=== PATIENT | male | born 1960 | race Caucasian/White ===

== ENCOUNTER 2017-07-23 08:43 | Emergency (ER) | payer MEDICARE, MEDICAID ==
[2017-07-23] MEDS ORDERED: ASPIRIN 81 MG TABLET, CHEWABLE PO ONE (09:06)
[2017-07-23 09:34] LABS: ABSOLUTE BASOPHILS # (AUTO) 0.1 10^3/uL (0.0-0.2); ABSOLUTE EOSINOPHILS # (AUTO) 0.1 10^3/uL (0.0-0.6); ABSOLUTE LYMPHOCYTES (AUTO) 0.7 10^3/uL (0.5-4.7); ABSOLUTE MONOCYTES (AUTO) 0.4 10^3/uL (0.1-1.4); ABSOLUTE NEUT (AUTO) 8.8 10^3/uL (1.7-8.2); BASOPHILS % (AUTO) 1.1 % (0-2); EOSINOPHILS % (AUTO) 0.9 % (0-6); HEMATOCRIT 39.8 % (37.9-51.0); HEMOGLOBIN 13.8 g/dL (13.5-17.0); LYMPHOCYTES % (AUTO) 6.8 % (13-45); MEAN CORPUSCULAR HEMOGLOBIN 30.6 pg (27.0-33.4); MEAN CORPUSCULAR HGB CONC 34.8 g/dL (32.0-36.0); MEAN CORPUSCULAR VOLUME 88 fl (80-97); MONOCYTES % (AUTO) 4.3 % (3-13); PLATELET COUNT 283 10^3/uL (150-450); RED BLOOD COUNT 4.52 10^6/uL (4.35-5.55); RED CELL DISTRIBUTION WIDTH 13.1 % (11.5-14.0); SEGMENTED NEUTROPHILS % (AUTO) 86.9 % (42-78); TOTAL CELLS COUNTED % (AUTO) 100 %; WHITE BLOOD COUNT 10.1 10^3/uL (4.0-10.5)
[2017-07-23] MEDS ORDERED: METOPROLOL TARTRATE 100 MG TABLET PO ONE (09:35)
--- NOTE | 2017-07-23 09:35 | ER Document Report ---
ED General - General Chief Complaint: Chest Pain Stated Complaint: CHEST PAIN Time Seen by Provider: 07/23/17 09:06 Mode of Arrival: Ambulatory Information source: Patient Notes: 56-year-old male history of 8 MIs 14 stents presents with complaints of chest pressure sensation. Patient notes his last CO and cardiac workup was in 2011 at [place]. Patient denies any nausea or vomiting admits to shortness of breath, he states he daily has chest pain but this time it did not improve completely with nitroglycerin which is different than his previous chest pains. Patient does note that for the past 48 hours he has been off his metoprolol TRAVEL OUTSIDE OF THE [place] IN LAST 30 DAYS: No - HPI Onset: Other - 48 hours Onset/Duration: Persistent Quality of pain: Pressure Severity: Mild Pain Level: 1 Associated symptoms: Chest pain Exacerbated by: Other Relieved by: Denies Similar symptoms previously: No Recently seen / treated by doctor: No - Related Data Allergies/Adverse Reactions: No Known Allergies Allergy (Verified 07/23/17 08:54) Past Medical History - Social History Smoking Status: Never Smoker Cigarette use (# per day): No Chew tobacco use (# tins/day): No Smoking Education Provided: No Family History: Reviewed & Not Pertinent - Past Medical History Cardiac Medical History: Reports: Hx Congestive Heart Failure, Hx Heart Attack - x6, Hx Hypercholesterolemia, Hx Hypertension Endocrine Medical History: Reports: Hx Diabetes Mellitus Type 2 Past Surgical History: Reports: Hx Cardiac Catheterization - stints x 11 Review of Systems - Review of Systems Notes: REVIEW OF SYSTEMS: CONSTITUTIONAL : Denies fever, chills, or sweats. Denies recent illness. EENT: Denies eye, ear, throat, or mouth pain or symptoms. Denies nasal or sinus congestion or discharge. Denies throat, tongue, or mouth swelling or difficulty swallowing. CARDIOVASCULAR: Admits to chest pain RESPIRATORY: Admits shortness of breath GASTROINTESTINAL: Denies abdominal pain or distention. Denies nausea, vomiting , or diarrhea. Denies blood in vomitus, stools, or per rectum. Denies black, tarry stools. Denies constipation. GENITOURINARY: Denies difficulty urinating, painful urination, burning, frequency, blood in urine, or discharge. MUSCULOSKELETAL: Denies back or neck pain or stiffness. Denies joint pain or swelling. SKIN: Denies rash, lesions or sores. HEMATOLOGIC : Denies easy bruising or bleeding. LYMPHATIC: Denies swollen, enlarged glands. NEUROLOGICAL: Denies confusion or altered mental status. Denies passing out or loss of consciousness. Denies dizziness or lightheadedness. Denies headache. Denies weakness or paralysis or loss of use of either side. Denies problems with gait or speech. Denies sensory loss, numbness, or tingling. Denies seizures. PSYCHIATRIC: Denies anxiety or stress. Denies depression, suicidal ideation, or homicidal ideation. ALL OTHER SYSTEMS REVIEWED AND NEGATIVE. Dictation was performed using [employer] voice recognition software PHYSICAL EXAMINATION: GENERAL: Well-appearing, well-nourished and in no acute distress. HEAD: Atraumatic, normocephalic. EYES: Pupils equal round and reactive to light, extraocular movements intact, sclera anicteric, conjunctiva are normal. ENT: Nares patent, oropharynx clear without exudates. Moist mucous membranes. NECK: Normal range of motion, supple without lymphadenopathy LUNGS: Breath sounds clear to auscultation bilaterally and equal. No wheezes rales or rhonchi. HEART: Regular rate and rhythm without murmurs ABDOMEN: Soft, nontender, nondistended abdomen. No guarding, no rebound. No masses appreciated. Musculoskeletal: Normal range of motion, no pitting or edema. No cyanosis. NEUROLOGICAL: Cranial nerves grossly intact. Normal speech, normal gait. Normal sensory, motor exams PSYCH: Normal mood, normal affect. SKIN: Warm, Dry, normal turgor, no rashes or lesions noted. Physical Exam - Vital signs Vitals: Temp Pulse Resp BP Pulse Ox 98.1 F 113 H 16 140/94 H 96 07/23/17 08:56 07/23/17 08:56 07/23/17 08:56 07/23/17 08:56 07/23/17 08:56 Course - Re-evaluation Re-evalutation: 07/23/17 09:36 Given extensive cardiac history cardiac workup is pending, patient believes his pain is secondary to his hypertension and lack of metoprolol, he will be given a dose of metoprolol here 07/23/17 10:13 elizabeth evangelista, trop is 0.065 07/23/17 10:[address] rosario , who accepts but patient will be here due ot room availability. 07/23/17 14:31 second set is 2.7 troponin. ekg ordered, new ksenia notified. - Vital Signs Vital signs: Temp Pulse Resp BP Pulse Ox 98.1 F 113 H 15 114/87 H 95 07/23/17 08:56 07/23/17 08:56 07/23/17 14:46 07/23/17 14:46 07/23/17 14:46 - Laboratory Result Diagrams: 07/23/17 09:20 07/23/17 09:20 Laboratory results interpreted by me: 07/23/17 07/23/17 09:20 09:20 Seg Neutrophils % 86.9 H Lymphocytes % 6.8 L Absolute Neutrophils 8.8 H BUN 21 H Glucose 199 H AST 16 L ALT 20 L - Diagnostic Test Radiology reviewed: Image reviewed, Reports reviewed - EKG Interpretation by Me EKG shows normal: Sinus rhythm, [place], Intervals - No ST elevations noted, QRS Complexes Critical Care Note - Critical Care Note Total time excluding time spent on procedures (mins): 55 Comments: 55 minutes of critical care time spent in direct contact evaluating and reevaluating the patient, treating symptoms, reviewing labs and studies and speaking with family and consultants excluding any procedures Discharge - Discharge Clinical Impression: Unstable angina, NSTEMI (non-ST elevated myocardial infarction) Condition: Fair Disposition: [facility] Referrals: SONIA PORTILLO MD [EMERITUS] - Follow up as needed
[2017-07-23 09:48] LABS: ALANINE AMINOTRANSFERASE 20 U/L (21-72); ALBUMIN 4.2 g/dL (3.5-5.0); ALKALINE PHOSPHATASE 83 U/L (38-126); ANION GAP 13 (5-19); ASPARTATE AMINO TRANSFERASE 16 U/L (17-59); BILIRUBIN,DIRECT 0.3 mg/dL (0.0-0.4); BILIRUBIN,TOTAL 0.7 mg/dL (0.2-1.3); BLOOD UREA NITROGEN 21 mg/dL (7-20); CALCIUM 9.4 mg/dL (8.4-10.2); CARBON DIOXIDE 22 mmol/L (22-30); CHLORIDE 106 mmol/L (98-107); CREATINE KINASE 75 U/L (55-170); GLUCOSE 199 mg/dL (75-110); POTASSIUM 4.6 mmol/L (3.6-5.0); SODIUM 140.9 mmol/L (137-145); TOTAL PROTEIN 6.8 g/dL (6.3-8.2)
[2017-07-23 09:59] LABS: CREATINE KINASE MB 3.15 ng/mL (<4.55)
[2017-07-23 10:03] LABS: TROPONIN I 0.065 ng/mL
[2017-07-23] MEDS ORDERED: HEPARIN SOD (PORCINE) 1,000 UNIT/ML 10 ML VIAL IV ONE (10:10)
[2017-07-23] MEDS ORDERED: HEPARIN SODIUM,PORCINE/D5W 25,000 UNIT/250 ML RTUINJ IV PRN (10:10)
[2017-07-23] MEDS ORDERED: NITROGLYCERIN 5 MG (0.2 MG/HR) PATCH.TD24 TD ONE (10:12)
--- NOTE | 2017-07-23 10:13 | RADIOLOGY REPORT (SQ) ---
EXAM DESCRIPTION: CHEST SINGLE VIEW COMPLETED DATE/TIME: 07/23/2017 10:01 am REASON FOR STUDY: chest pain COMPARISON: 07/23/2011 EXAM PARAMETERS: NUMBER OF VIEWS: One view. TECHNIQUE: Single frontal radiographic view of the chest acquired. RADIATION DOSE: NA LIMITATIONS: None. FINDINGS: LUNGS AND PLEURA: No opacities, masses or pneumothorax. No pleural effusion. MEDIASTINUM AND HILAR STRUCTURES: No masses. Contour normal. HEART AND VASCULAR STRUCTURES: Heart normal in size. Normal vasculature. BONES: No acute findings. HARDWARE: None in the chest. OTHER: No other significant finding. IMPRESSION: NO ACUTE RADIOGRAPHIC FINDING IN THE CHEST. TECHNICAL DOCUMENTATION: JOB ID: [id number] [employer]- All Rights Reserved Reading location - IP/workstation name: [email or web address]
[2017-07-23 10:43] LABS: INTERNATIONAL RATION (INR) 0.95; PROTHROMBIN TIME 13.2 SEC (11.4-15.4)
[2017-07-23 10:44] LABS: PARTIAL THROMBOPLASTIN TIME 29.9 SEC (23.5-35.8)
[2017-07-23] MEDS ORDERED: HEPARIN SODIUM,PORCINE/D5W 25,000 UNIT/250 ML RTUINJ IV ONE (10:45)
[2017-07-23] MEDS ORDERED: HEPARIN SOD (PORCINE) 1,000 UNIT/ML 10 ML VIAL IV PRN (13:11)
[2017-07-23 16:18] VITALS: BP 113/77
--- NOTE | 2017-07-23 22:30 | EKG REPORT ---
SEVERITY:- ABNORMAL ECG - SINUS RHYTHM NONSPECIFIC T ABNORMALITIES, LATERAL LEADS : Confirmed by: Brittani Nails MD 23-Jul-2017 22:29:45
--- NOTE | 2017-07-23 22:31 | EKG REPORT ---
SEVERITY:- ABNORMAL ECG - SINUS TACHYCARDIA VENTRICULAR PREMATURE COMPLEX INCOMPLETE LEFT BUNDLE BRANCH BLOCK : Confirmed by: Brittani Nails MD 23-Jul-2017 22:30:01
== END 2017-07-23 16:25 | disposition short-term general hospital (02) ==
LOC: ER 08:43
DX: I20.0 Unstable angina (principal); I21.4 Non-ST elevation (NSTEMI) myocardial infarction; R07.9 Chest pain, unspecified; I50.9 Heart failure, unspecified; E78.00 Pure hypercholesterolemia, unspecified; I11.0 Hypertensive heart disease with heart failure; I25.2 Old myocardial infarction
CPT/HCPCS: 93005; 99285; 96365; 96366; 36415; 82553; 82962; 82550; 85025; 85610; 85730; 80053; 84484; 71045; 93010; J1644 ×2; A9270; J3490

== ENCOUNTER 2017-10-19 20:59 | Emergency (ER) | payer MEDICARE, MEDICAID ==
--- NOTE | 2017-10-19 21:33 | ER Document Report ---
ED General - General Chief Complaint: Fever Stated Complaint: FEVER Time Seen by Provider: 10/19/17 21:15 Information source: Patient Notes: Patient is a 57-year-old male complaining of chills and sweats since 230 this morning. Patient stated he took his temperature orally prior to calling EMS and got a recording of 103.3 Fahrenheit, patient stated he took no medications just came to the emergency room via EMS. Patient denies nausea, vomiting, diarrhea, URI symptoms, headache, neck pain, weakness, dizziness, chest pain, shortness of breath. Patient stated yesterday mid afternoon he was feeling dizzy check his blood sugar and it was 55. Stated he ate something and felt "fine afterwards ". Patient has extensive cardiac history with "14 stents", CHF , hypertension, hyperlipidemia, and diabetes. On exam patient is currently denying all complaints to include chills or sweats at the moment. TRAVEL OUTSIDE OF THE [place] IN LAST 30 DAYS: No - Related Data Allergies/Adverse Reactions: No Known Allergies Allergy (Verified 07/23/17 08:54) Past Medical History - General Information source: Patient - Social History Smoking Status: Former Smoker Family History: Reviewed & Not Pertinent Patient has suicidal ideation: No Patient has homicidal ideation: No - Past Medical History Cardiac Medical History: Reports: Hx Congestive Heart Failure, Hx Heart Attack - x6, Hx Hypercholesterolemia, Hx Hypertension Endocrine Medical History: Reports: Hx Diabetes Mellitus Type 2 Renal/ Medical History: Denies: Hx Peritoneal Dialysis Past Surgical History: Reports: Hx Cardiac Catheterization - stints x 11 Review of Systems - Review of Systems Constitutional: See HPI EENT: See HPI Cardiovascular: See HPI Respiratory: See HPI Gastrointestinal: See HPI. denies: Abdominal pain Genitourinary: No symptoms reported Male Genitourinary: No symptoms reported Musculoskeletal: No symptoms reported Skin: No symptoms reported Hematologic/Lymphatic: No symptoms reported Neurological/Psychological: No symptoms reported Physical Exam - Vital signs Vitals: Resp Pulse Ox 21 H 97 10/19/17 21:05 10/19/17 21:05 - Notes Notes: GENERAL: Alert, interacts well. No acute distress. HEAD: Normocephalic, atraumatic. EYES: Pupils equal, round, and reactive to light. Extraocular movements intact. ENT: Oral mucosa moist, tongue midline. [Nares patent, no nasal septal hematoma , TM's WNL, pharynx within normal limits] NECK: Full range of motion. Supple. Trachea midline. LUNGS: Clear to auscultation bilaterally, no wheezes, rales, or rhonchi. No respiratory distress. HEART: Regular rate and rhythm. No murmur ABDOMEN: Soft, non-tender. Non-distended. Bowel sounds present in all 4 quadrants. EXTREMITIES: Moves all 4 extremities spontaneously. No edema, normal radial and dorsalis pedis pulses bilaterally. No cyanosis. BACK: no cervical, thoracic, lumbar midline tenderness. No saddle anesthesia, normal distal neurovascular exam. NEUROLOGICAL: Alert and oriented x3. Normal speech. [cranial nerves II through XII grossly intact]. PSYCH: Normal affect, normal mood. SKIN: Warm, dry, normal turgor. No rashes or lesions noted. Course - Re-evaluation Re-evalutation: Patient continues to be complaint free while in the emergency department, also without fever. At one point patient's blood pressure dropped to 94/64, although patient continued to deny lightheadedness dizziness or weakness. Blood pressure responded to fluid bolus. Lactate and blood cultures were obtained at that time. Troponins negative. Other lab results benign. Return precautions given. Upon discharge nurse stated the patient had a fever. Upon reexam patient continued to deny nausea, vomiting, diarrhea, URI symptoms, headache, neck stiffness, chest pain, shortness of breath, rash, tick exposure. Talked to patient about antipyretics and need to follow-up with primary care. Broad- spectrum antibiotics such as doxycycline were offered, patient declined. Urine cultures and blood cultures pending. - Vital Signs Vital signs: Temp Pulse Resp BP Pulse Ox 101 F H 94 36 H 123/66 94 10/20/17 03:01 10/19/17 21:06 10/20/17 03:01 10/20/17 03:01 10/20/17 03:01 - Laboratory Result Diagrams: 10/19/17 21:30 10/19/17 21:30 Laboratory results interpreted by me: 10/19/17 10/19/17 10/19/17 21:30 21:30 21:51 RBC 4.19 L Hgb 12.7 L Hct 36.5 L Sodium 135.1 L BUN 30 H Creatinine 1.35 H Est GFR (Non-Af Amer) 55 L Glucose 216 H Urine Glucose (UA) 50 H Urine Urobilinogen 2.0 H Discharge - Discharge Clinical Impression: Chills, Dehydration Condition: Stable Disposition: HOME, SELF-CARE Instructions: Viral Syndrome (OM) Additional Instructions: As we talked about you are to take 2 500 mg of Tylenol every 4 hours for fever. Continue to stay well-hydrated. Follow-up with primary care in the next 24- 48 hours. Viral Syndrome The physician has diagnosed a viral infection. Viruses not only cause "colds," but can cause many different symptoms including generalized aching, fever, headache, cough, diarrhea, nausea, vomiting, and fatigue. The treatment, for the most part, is simply relief of symptoms. This means that antibiotics are usually not given. Rest, fluids, pain medications and, occasionally, medication for the specific symptoms that are most bothersome will be prescribed. Use good handwashing to avoid passing the virus to others. Shared toys should be cleaned with disinfectant. Clean the toilets, sinks, and counter surfaces in bathrooms. Launder clothing in hot water. Contact the physician if you develop any new or unusual symptoms such as severe headache, stiff neck, high fever, chest pain, productive cough, or shortness of breath. You should be rechecked if you don't see marked improvement within seven to 10 days. Referrals: KIM LOPEZ DO [Primary Care Provider] - Follow up as needed
[2017-10-19 22:07] LABS: ALANINE AMINOTRANSFERASE 22 U/L (21-72); ALBUMIN 3.5 g/dL (3.5-5.0); ALKALINE PHOSPHATASE 83 U/L (38-126); ANION GAP 12 (5-19); ASPARTATE AMINO TRANSFERASE 19 U/L (17-59); BILIRUBIN,DIRECT 0.3 mg/dL (0.0-0.4); BILIRUBIN,TOTAL 0.6 mg/dL (0.2-1.3); BLOOD UREA NITROGEN 30 mg/dL (7-20); CALCIUM 8.4 mg/dL (8.4-10.2); CARBON DIOXIDE 23 mmol/L (22-30); CHLORIDE 100 mmol/L (98-107); GLUCOSE 216 mg/dL (75-110); POTASSIUM 4.7 mmol/L (3.6-5.0); SODIUM 135.1 mmol/L (137-145); TOTAL PROTEIN 6.4 g/dL (6.3-8.2)
[2017-10-19 22:20] LABS: APPEARANCE,URINE SLIGHTLY-CLOUDY; BILIRUBIN,URINE NEGATIVE (NEGATIVE); COLOR,URINE YELLOW; GLUCOSE, URINE 50 mg/dL (NEGATIVE); KETONES,URINE NEGATIVE (NEGATIVE); LEUKOCYTE ESTERASE,URINE NEGATIVE (NEGATIVE); NITRITE,URINE NEGATIVE (NEGATIVE); PROTEIN,URINE NEGATIVE (NEGATIVE); URINE SPECIFIC GRAVITY 1.019
[2017-10-19 22:24] LABS: ABSOLUTE BASOPHILS # (AUTO) 0.1 10^3/uL (0.0-0.2); ABSOLUTE EOSINOPHILS # (AUTO) 0.1 10^3/uL (0.0-0.6); ABSOLUTE LYMPHOCYTES (AUTO) 1.3 10^3/uL (0.5-4.7); ABSOLUTE MONOCYTES (AUTO) 0.7 10^3/uL (0.1-1.4); ABSOLUTE NEUT (AUTO) 5.9 10^3/uL (1.7-8.2); BASOPHILS % (AUTO) 0.9 % (0-2); EOSINOPHILS % (AUTO) 0.9 % (0-6); HEMATOCRIT 36.5 % (37.9-51.0); HEMOGLOBIN 12.7 g/dL (13.5-17.0); LYMPHOCYTES % (AUTO) 15.8 % (13-45); MEAN CORPUSCULAR HEMOGLOBIN 30.2 pg (27.0-33.4); MEAN CORPUSCULAR HGB CONC 34.7 g/dL (32.0-36.0); MEAN CORPUSCULAR VOLUME 87 fl (80-97); MONOCYTES % (AUTO) 8.9 % (3-13); PLATELET COUNT 219 10^3/uL (150-450); RED BLOOD COUNT 4.19 10^6/uL (4.35-5.55); RED CELL DISTRIBUTION WIDTH 13.9 % (11.5-14.0); SEGMENTED NEUTROPHILS % (AUTO) 73.5 % (42-78); TOTAL CELLS COUNTED % (AUTO) 100 %; WHITE BLOOD COUNT 8.1 10^3/uL (4.0-10.5)
--- NOTE | 2017-10-19 22:48 | RADIOLOGY REPORT (SQ) ---
XR CHEST 2 VIEWS HISTORY: Fever. COMPARISON: 07/23/2017 FINDINGS/IMPRESSION: Normal cardiomediastinal contours. Lungs are clear. No pleural effusion or pneumothorax is seen. No acute osseous findings.
[2017-10-19] MEDS ORDERED: NORMAL SALINE 1000 ML 500 ML IV ONE (22:58)
[2017-10-20] MEDS ORDERED: NORMAL SALINE 1000 ML 500 ML IV ONE (00:30)
[2017-10-20] MEDS ORDERED: ACETAMINOPHEN 325 MG TABLET PO ONE (03:02)
[2017-10-20 03:36] VITALS: BP 123/66
--- NOTE | 2017-10-20 08:05 | EKG REPORT ---
SEVERITY:- ABNORMAL ECG - SINUS RHYTHM ABNORMAL T, CONSIDER ISCHEMIA, LATERAL LEADS : Confirmed by: Rao Yap MD 20-Oct-2017 08:05:14
== END 2017-10-20 03:39 | disposition home or self-care (01) ==
LOC: ER 20:59
DX: R50.9 Fever, unspecified (principal); E86.0 Dehydration; I10 Essential (primary) hypertension; E11.9 Type 2 diabetes mellitus without complications; Z95.5 Presence of coronary angioplasty implant and graft; Z87.891 Personal history of nicotine dependence
CPT/HCPCS: 93005; 99284; 96360; 96361; 36415; 87040; 87086; 85025; 80053; 81001; 84484; 83605; 71046; 93010; A9270; J7030 ×2

== ENCOUNTER 2018-08-10 07:09 | Emergency (ER) | payer MEDICARE, MEDICAID ==
[2018-08-10 07:40] LABS: ABSOLUTE BASOPHILS # (AUTO) 0.1 10^3/uL (0.0-0.2); ABSOLUTE EOSINOPHILS # (AUTO) 0.2 10^3/uL (0.0-0.6); ABSOLUTE LYMPHOCYTES (AUTO) 1.6 10^3/uL (0.5-4.7); ABSOLUTE MONOCYTES (AUTO) 0.7 10^3/uL (0.1-1.4); ABSOLUTE NEUT (AUTO) 5.1 10^3/uL (1.7-8.2); BASOPHILS % (AUTO) 1.4 % (0-2); EOSINOPHILS % (AUTO) 2.6 % (0-6); HEMATOCRIT 39.5 % (37.9-51.0); HEMOGLOBIN 12.4 g/dL (13.5-17.0); LYMPHOCYTES % (AUTO) 20.9 % (13-45); MEAN CORPUSCULAR HEMOGLOBIN 23.5 pg (27.0-33.4); MEAN CORPUSCULAR HGB CONC 31.3 g/dL (32.0-36.0); MEAN CORPUSCULAR VOLUME 75 fl (80-97); PLATELET COUNT 299 10^3/uL (150-450); RED BLOOD COUNT 5.27 10^6/uL (4.35-5.55); RED CELL DISTRIBUTION WIDTH 17.4 % (11.5-14.0); SEGMENTED NEUTROPHILS % (AUTO) 66.1 % (42-78); TOTAL CELLS COUNTED % (AUTO) 100 %; WHITE BLOOD COUNT 7.7 10^3/uL (4.0-10.5)
--- NOTE | 2018-08-10 07:43 | ER Document Report ---
ED Medical Screen (RME) - General Chief Complaint: Chest Pain Stated Complaint: CHEST PAIN Time Seen by Provider: 08/10/18 07:32 Primary Care Provider: KIM LOPEZ DO [Primary Care Provider] - Follow up as needed Notes: Patient is a 57-year-old male brought in by ambulance who presents to the emergency department with a chief plaint of chest pain. He was sleeping and at 5:00 this morning patient had a dull pain to the left mid lower chest. He immediately took nitroglycerin he had at home and when paramedics arrived he received 325 mg of aspirin. He did have shortness of breath. At this time, he states he is chest pain-free. He has history of 9 total myocardial infarctions. His first myocardial infarction he had at 34 years old. He does have stents that were placed. His last IA was a year ago and he was seen at [facility]. His trim operator is Dr. James. Exam: S1, S2. Lung sounds clear bilaterally. I have greeted and performed a rapid initial assessment of this patient. A comprehensive ED assessment and evaluation of the patient, analysis of test results and completion of medical decision making process will be conducted by an additional ED providers. TRAVEL OUTSIDE OF THE [place] IN LAST 30 DAYS: No - Related Data Allergies/Adverse Reactions: No Known Allergies Allergy (Verified 07/23/17 08:54) Past Medical History - Social History Chew tobacco use (# tins/day): No Frequency of alcohol use: None Drug Abuse: None - Past Medical History Cardiac Medical History: Reports: Hx Congestive Heart Failure, Hx Heart Attack - x6, Hx Hypercholesterolemia, Hx Hypertension Endocrine Medical History: Reports: Hx Diabetes Mellitus Type 2 Renal/ Medical History: Denies: Hx Peritoneal Dialysis Past Surgical History: Reports: Hx Cardiac Catheterization - stints x 11 Doctor's Discharge - Discharge Referrals: KIM LOPEZ DO [Primary Care Provider] - Follow up as needed
[2018-08-10 07:52] LABS: ALANINE AMINOTRANSFERASE 21 U/L (21-72); ALBUMIN 4.3 g/dL (3.5-5.0); ALKALINE PHOSPHATASE 104 U/L (38-126); ANION GAP 13 (5-19); ASPARTATE AMINO TRANSFERASE 15 U/L (17-59); BILIRUBIN,DIRECT 0.4 mg/dL (0.0-0.4); BILIRUBIN,TOTAL 0.8 mg/dL (0.2-1.3); BLOOD UREA NITROGEN 29 mg/dL (7-20); CALCIUM 9.1 mg/dL (8.4-10.2); CARBON DIOXIDE 22 mmol/L (22-30); CHLORIDE 106 mmol/L (98-107); CREATINE KINASE 86 U/L (55-170); GLUCOSE 163 mg/dL (75-110); POTASSIUM 4.6 mmol/L (3.6-5.0); SODIUM 141.1 mmol/L (137-145); TOTAL PROTEIN 7.1 g/dL (6.3-8.2)
[2018-08-10 08:04] LABS: CREATINE KINASE MB 3.96 ng/mL (<4.55); TROPONIN I 0.028 ng/mL
--- NOTE | 2018-08-10 08:25 | RADIOLOGY REPORT (SQ) ---
EXAM DESCRIPTION: CHEST SINGLE VIEW COMPLETED DATE/TIME: 08/10/2018 7:56 am REASON FOR STUDY: chest pain COMPARISON: 10/19/2017 EXAM PARAMETERS: NUMBER OF VIEWS: One view. TECHNIQUE: Single frontal radiographic view of the chest acquired. RADIATION DOSE: NA LIMITATIONS: None. FINDINGS: LUNGS AND PLEURA: No opacities, masses or pneumothorax. No pleural effusion. MEDIASTINUM AND HILAR STRUCTURES: No masses. Contour normal. HEART AND VASCULAR STRUCTURES: Cardiomegaly with coronary artery stents. BONES: No acute findings. HARDWARE: None in the chest. OTHER: No other significant finding. IMPRESSION: Cardiomegaly without acute abnormality of the lungs. TECHNICAL DOCUMENTATION: JOB ID: [id number] [employer]- All Rights Reserved Reading location - IP/workstation name: [email or web address]
--- NOTE | 2018-08-10 08:33 | ER Document Report ---
Addendum entered and electronically signed by VIVIANE ROBLES PA 08/10/18 21:37: Course - Re-evaluation Re-evalutation: 08/10/18 21:33 CTA showing lung nodule and enlarged lymph nodes, but no PE or concerning acute findings. Spoke with Dr. Alves and updated the results. Patient accepted for transport. Patient states he is chest pain free at bedside when I re-evaluated him at this time. - Vital Signs Vital signs: Temp Pulse Resp BP Pulse Ox 97.7 F 14 117/80 97 08/10/18 19:58 08/10/18 20:01 08/10/18 20:01 08/10/18 20:01 - Laboratory Result Diagrams: 08/10/18 06:50 08/10/18 06:50 Laboratory results interpreted by me: 08/10/18 08/10/18 08/10/18 06:50 06:50 08:40 Hgb 12.4 L MCV 75 L MCH 23.5 L MCHC 31.3 L RDW 17.4 H D-Dimer BUN 29 H Creatinine 1.31 H Est GFR (Non-Af Amer) 57 L Glucose 163 H POC Glucose 175 H AST 15 L 08/10/18 18:54 Hgb MCV MCH MCHC RDW D-Dimer 2.19 H BUN Creatinine Est GFR (Non-Af Amer) Glucose POC Glucose AST Addendum entered and electronically signed by VIVIANE ROBLES PA 08/10/18 20:22: Course - Re-evaluation Re-evalutation: 08/10/18 20:21 Dr. Davidson called, I spoke with him in regards to the patient, he requests that the CTA be performed before patient be transferred, he states he will not accept the patient unless he has a CTA chest performed and reported first. Informed the nurse and transport team. Patient will have the test performed. - Vital Signs Vital signs: Temp Pulse Resp BP Pulse Ox 97.7 F 14 117/80 97 08/10/18 19:58 08/10/18 20:01 08/10/18 20:01 08/10/18 20:01 - Laboratory Result Diagrams: 08/10/18 06:50 08/10/18 06:50 Laboratory results interpreted by me: 08/10/18 08/10/18 08/10/18 06:50 06:50 08:40 Hgb 12.4 L MCV 75 L MCH 23.5 L MCHC 31.3 L RDW 17.4 H D-Dimer BUN 29 H Creatinine 1.31 H Est GFR (Non-Af Amer) 57 L Glucose 163 H POC Glucose 175 H AST 15 L 08/10/18 18:54 Hgb MCV MCH MCHC RDW D-Dimer 2.19 H BUN Creatinine Est GFR (Non-Af Amer) Glucose POC Glucose AST Original Note: ED Cardiac - General Chief Complaint: Chest Pain Stated Complaint: CHEST PAIN Time Seen by Provider: 08/10/18 07:32 Primary Care Provider: KIM LOPEZ DO [Primary Care Provider] - Follow up as needed Notes: Patient is a 57-year-old male with a history of 9 heart attacks with 14 stents, type 2 diabetes, hypertension, high cholesterol, congestive heart failure who presents to the emergency department with a chief complaint of left mid lower chest discomfort. Patient states that this started around 5 AM this morning and did wake him up. Patient states he did take 325 mg of baby aspirin at home as well as one sublingual nitroglycerin which did improve his pain. Patient states that during the episode of chest discomfort he did have some shortness of breath. Patient states that last year in 2018 he was diagnosed with a heart attack and sent to [facility]. Patient states his dicer machine operator is Dr. James. He states that he did go to the [facility] and was found to have multiple stents blocked with clots. Patient states they were treating him with medication. Patient states he is on Plavix a daily. Patient states he is concerned because when he has his heart attacks annually usually located in the left chest where he was having his pain this morning. Patient reports his ejection fraction as 10%. Patient states last stress test was over 4 years ago and at that time it induced chest pain and since then he has not had one. States last time he saw his dicer machine operator was 6 months ago as he has been doing fine without problems. TRAVEL OUTSIDE OF THE [place] IN LAST 30 DAYS: No - Related Data Allergies/Adverse Reactions: No Known Allergies Allergy (Verified 07/23/17 08:54) Past Medical History - General Information source: Patient - Social History Smoking Status: Former Smoker Chew tobacco use (# tins/day): No Frequency of alcohol use: None Drug Abuse: None Lives with: Alone Family History: Reviewed & Not Pertinent Patient has suicidal ideation: No Patient has homicidal ideation: No - Past Medical History Cardiac Medical History: Reports: Hx Congestive Heart Failure, Hx Heart Attack - x6, Hx Hypercholesterolemia, Hx Hypertension Pulmonary Medical History: Reports: None EENT Medical History: Reports: None Neurological Medical History: Reports: None Endocrine Medical History: Reports: Hx Diabetes Mellitus Type 2 Renal/ Medical History: Reports: None. Denies: Hx Peritoneal Dialysis Malignancy Medical History: Reports None GI Medical History: Reports: None Musculoskeletal Medical History: Reports None Skin Medical History: Reports None Psychiatric Medical History: Reports: None Traumatic Medical History: Reports: None Infectious Medical History: Reports: None Past Surgical History: Reports: Hx Cardiac Catheterization - stints x 11 Review of Systems - Review of Systems Constitutional: No symptoms reported EENT: No symptoms reported Cardiovascular: See HPI Respiratory: See HPI Gastrointestinal: No symptoms reported Genitourinary: No symptoms reported Male Genitourinary: No symptoms reported Musculoskeletal: No symptoms reported Skin: No symptoms reported Hematologic/Lymphatic: No symptoms reported Neurological/Psychological: No symptoms reported Physical Exam - Vital signs Vitals: Pulse Ox 100 08/10/18 07:32 - Notes Notes: GENERAL: Well-appearing, well-nourished and in no acute distress. HEAD: Atraumatic, normocephalic. EYES: Pupils equal round and reactive to light, extraocular movements intact, sclera anicteric, conjunctiva are normal. ENT: Nares patent, oropharynx clear without exudates. Moist mucous membranes. NECK: Normal range of motion, supple without lymphadenopathy or JVD. LUNGS: Breath sounds clear to auscultation bilaterally and equal. No wheezes rales or rhonchi. HEART: Regular rate and rhythm without murmurs, rubs or gallops. No re- producible chest pain with palpation. ABDOMEN: Soft, round, reducible umbilical hernia (pt. states this has been present and not changed since 2006), nontender, normoactive bowel sounds. No gu arding, no rebound. No masses appreciated. BACK: No cervical, thoracic, lumbar midline tenderness. No saddle anesthesia, normal distal neurovascular exam. GENITOURINARY: Deferred. EXTREMITIES: Normal range of motion, no pitting or edema. No clubbing or cyanosis. NEUROLOGICAL: Cranial nerves II through XII grossly intact. Normal speech, normal gait. PSYCH: Normal mood, normal affect. SKIN: Warm, Dry, normal turgor, no rashes or lesions noted. Course - Re-evaluation Re-evalutation: 08/10/18 08:41 Upon initial assessment patient is resting comfortably on stretcher in no acute distress. Patient denies pain or nausea at this time. 08/10/18 10:32 During reevaluation patient is resting comfortably on stretcher. Patient denies chest pain, palpitations or shortness of breath. I did inform the patient that his second Troponin will be drawn in about 1 hour. Patient is concerned that he is due for his cardiac medications that he did not take this morning. Patient states that he notices if he does not take his medications as scheduled he does develop chest pain. I will order his cardiac medications. We will continue to monitor. BUN and creatinine were slightly elevated. Patient does have a history of congestive heart failure. Lungs were clear to auscultation besides Cardiomegaly there was no abnormality shown on the chest x-ray. I will give patient a 500 saline bolus slowly and monitor. 08/10/18 12:11 Delta Troponin did elevate. Upon reevaluation patient's resting comfortably on stretcher. Continues to deny any chest pain or shortness of breath. Second EKG has been obtained and there is no significant change. 08/10/18 12:22 I spoke with lead hospitalist who recommends patient be transferred due to significant cardiac history and increase in troponin. 08/10/18 12:25 I did speak with [facility] transfer center to place consult/possible transfer to facility. 08/10/18 13:[address] Saulo Adrian with [facility] who will accept transfer. 08/10/18 13:15 I did update the patient and make him aware that he is excepted at [facility]. Patient continues to deny chest pain or shortness of breath. We will keep the patient updated when a bed is assigned and transportation ETA. 08/10/18 14:09 [address] did speak with Dr. Mccollum my supervising physician to make him aware of the patient, his troponin, and transfer to [facility]. Patient now has a bed at [facility] we will set up for transport. Continues to deny any chest pain or shortness of breath. Will order his Plavix and Lasix as he has not had his dosages today. 08/10/18 16:28 Patient resting comfortably on stretcher. Patient denies chest pain. He did state earlier he felt like he was somewhat short of breath but after taking a few good deep breaths he felt okay. I have not received the third Troponin as it has been drawn and is pending. 08/10/18 16:59 Troponin has increased - 0.116, I did call [facility] to report the finding to Dr. Saulo Adrian, as well as the complaint of shortness of breath. He does recommend adding on D-Dimer, if positive obtaining a CTA. Transport ETA 1800. 08/10/18 19:42 Patient resting comfortably on stretcher. Patient denies chest pain or shortness of breath. [facility] should be arriving to the emergency department to transport the patient to [facility], I did state the patient regarding the delay and transfer. Patient remains calm and cooperative and denies questions at this time. 08/10/18 20:02 [facility] at bedside for transport. Patient continues to deny chest pain or shortness of breath. Patient's d-dimer did result as positive. We will hold on ordering CTA as the patient is being transferred to [facility]. Stable for transfer - Vital Signs Vital signs: Temp Pulse Resp BP Pulse Ox 97.9 F 19 131/88 H 97 08/10/18 12:01 08/10/18 15:01 08/10/18 15:01 08/10/18 15:01 - Laboratory Result Diagrams: 08/10/18 06:50 08/10/18 06:50 Laboratory results interpreted by me: 08/10/18 08/10/18 08/10/18 06:50 06:50 08:40 Hgb 12.4 L MCV 75 L MCH 23.5 L MCHC 31.3 L RDW 17.4 H D-Dimer BUN 29 H Creatinine 1.31 H Est GFR (Non-Af Amer) 57 L Glucose 163 H POC Glucose 175 H AST 15 L 08/10/18 18:54 Hgb MCV MCH MCHC RDW D-Dimer 2.19 H BUN Creatinine Est GFR (Non-Af Amer) Glucose POC Glucose AST - Diagnostic Test Radiology reviewed: Reports reviewed - EKG Interpretation by Me Additional EKG results interpreted by me: 08/10/18 12:15 His initial EKG that was performed at 7:13 AM showed a sinus rhythm with a heart rate of 99. Patient's MS interval 180, QT 344 and QTC was 442. Patient does have a left axis deviation. There is no ST segment changes in consecutive leads. Patient second EKG performed at 12:14 PM showed a sinus rhythm with a heart rate of 75. Has a noted left axis deviation. Patient's MS interval 172, QT 380 and QTc is 425. No ST segment changes noted or change in previous EKG. It does appear that patient had an atrial premature complex. Discharge - Discharge Clinical Impression: Elevated troponin Chest pain Qualifiers: Chest pain type: unspecified Qualified Code(s): R07.9 - Chest pain, unspecified Condition: Stable Disposition: [facility] Referrals: KIM LOPEZ DO [Primary Care Provider] - Follow up as needed
[2018-08-10] MEDS ORDERED: NORMAL SALINE 1000 ML 500 ML IV ONE (10:34)
[2018-08-10] MEDS ORDERED: LISINOPRIL 10 MG TABLET PO ONE (10:34)
[2018-08-10] MEDS ORDERED: ISOSORBIDE MONONITRATE 60 MG TAB.ER.24H PO ONE (10:34)
[2018-08-10] MEDS ORDERED: METOPROLOL SUCCINATE 50 MG TAB.SR.24H PO ONE (10:34)
[2018-08-10] MEDS ORDERED: CLOPIDOGREL BISULFATE 75 MG TABLET PO ONE (13:59)
[2018-08-10] MEDS ORDERED: FUROSEMIDE 20 MG TABLET PO ONE (13:59)
[2018-08-10 19:31] LABS: PARTIAL THROMBOPLASTIN TIME 28.4 SEC (23.5-35.8)
[2018-08-10 19:32] LABS: INTERNATIONAL RATION (INR) 1.06; PROTHROMBIN TIME 14.3 SEC (11.4-15.4)
--- NOTE | 2018-08-10 21:12 | RADIOLOGY REPORT (SQ) ---
EXAM DESCRIPTION: CT CHEST ANGIOGRAPHY WITHOUT THEN WITH IV CONTRAST COMPLETED DATE/TME: 08/10/2018 20:19 CLINICAL HISTORY: 57 years, Male, elevated D-Dimer, elevating troponin, chest pain COMPARISON: None. TECHNIQUE: 624 Images stored on PACS. All CT scanners at this facility use dose modulation, iterative reconstruction, and/or weight based dosing when appropriate to reduce radiation dose to as low as reasonably achievable (ALARA). Axial images with coronal and sagittal MIPS [facility]: Dose Right [facility]: CareDose [facility]: Dose Right [facility]: Teradose 4D [facility]: [employer] LIMITATIONS: None. FINDINGS: The mediastinal vasculature enhances normally. No intraluminal filling defect to suggest pulmonary embolus. Nonspecific nonenlarged and enlarged mediastinal and hilar lymph nodes bilaterally. Findings are nonspecific. The largest node is in the posterior mediastinum/right infrahilar region measuring 1.9 x 1.5 cm. The heart and pericardium are unremarkable. Limited evaluation of upper abdomen shows probable fatty infiltrative change to the liver. Osseous structures are grossly intact. No pneumothorax. Utilized airways are patent. 3 mm subpleural nodule lateral right upper lobe. Lungs are otherwise clear IMPRESSION: Negative for pulmonary embolus, thoracic aortic aneurysm, or dissection. Nonspecific nonenlarged and mildly enlarged mediastinal and hilar lymph nodes. Continued follow-up recommended. 3 mm nodule lateral right upper lobe. Recommend follow-up as below. 2017 Fleischner Society Recommendations for Single Solid Lung Nodule Follow-Up based on size (average of long- and short-axis diameters) <6 mm Low-Risk Patient: No routine follow-up <6 mm High-Risk Patient: Optional CT at 12 months 6-8 mm Low-Risk Patient: CT at 6-[address] at 18-24 months 6-8 mm High-Risk Patient: CT at 6-[address] at 18-24 months >8 mm Low-Risk Patient: Consider CT, PET/CT or tissue sampling at 3 months >8 mm High-Risk Patient: Same as for low-risk patient TECHNICAL DOCUMENTATION: Quality ID # 436: Final reports with documentation of one or more dose reduction techniques (e.g., Automated exposure control, adjustment of the mA and/or kV according to patient size, use of iterative reconstruction technique) copyright 2011 [employer]- All Rights Reserved
[2018-08-10 22:49] VITALS: BP 117/74
--- NOTE | 2018-08-10 22:51 | EKG REPORT ---
SEVERITY:- ABNORMAL ECG - SINUS RHYTHM ABNRM R PROG, CONSIDER ASMI OR LEAD PLACEMENT NONSPECIFIC T ABNORMALITIES, LATERAL LEADS : Confirmed by: Sherita Larsen 10-Aug-2018 22:51:04
--- NOTE | 2018-08-10 22:51 | EKG REPORT ---
SEVERITY:- ABNORMAL ECG - SINUS RHYTHM ATRIAL PREMATURE COMPLEX BORDERLINE LEFT AXIS DEVIATION ABNRM R PROG, CONSIDER ASMI OR LEAD PLACEMENT NONSPECIFIC T ABNORMALITIES, LATERAL LEADS : Confirmed by: Sherita Larsen 10-Aug-2018 22:50:41
== END 2018-08-10 22:51 | disposition short-term general hospital (02) ==
LOC: ER 07:09
DX: R07.9 Chest pain, unspecified (principal); I11.0 Hypertensive heart disease with heart failure; I50.9 Heart failure, unspecified; R74.8 Abnormal levels of other serum enzymes; R79.1 Abnormal coagulation profile; R91.1 Solitary pulmonary nodule; K42.9 Umbilical hernia without obstruction or gangrene; R59.9 Enlarged lymph nodes, unspecified; I25.2 Old myocardial infarction; E11.9 Type 2 diabetes mellitus without complications; Z95.5 Presence of coronary angioplasty implant and graft; Z79.02 Long term (current) use of antithrombotics/antiplatelets; Z87.891 Personal history of nicotine dependence; Z79.899 Other long term (current) drug therapy
CPT/HCPCS: 93005; 99285; 96360; 36415; 82553; 82962; 82550; 85025; 85610; 85730; 80053; 84484; 85379; 71045; 71275; 93010; A9270 ×5; J7030

== ENCOUNTER → 2018-08-21 | Outpatient (CLI) | payer MEDICAID, MEDICARE ==
[2018-08-21 12:21] LABS: ANION GAP 11 (5-19); BLOOD UREA NITROGEN 29 mg/dL (7-20); CALCIUM 9.2 mg/dL (8.4-10.2); CARBON DIOXIDE 24 mmol/L (22-30); CHLORIDE 104 mmol/L (98-107); GLUCOSE 209 mg/dL (75-110); POTASSIUM 4.6 mmol/L (3.6-5.0); SODIUM 138.9 mmol/L (137-145)
== END ==
LOC: OD 11:02
PROVIDERS: ATTEND Family Medicine
DX: E11.65 Type 2 diabetes mellitus with hyperglycemia (principal); I25.10 Atherosclerotic heart disease of native coronary artery without angina pectoris; I11.9 Hypertensive heart disease without heart failure; I25.5 Ischemic cardiomyopathy
CPT/HCPCS: 36415; 80048

== ENCOUNTER 2020-02-11 09:17 | Emergency (ER) | payer MEDICARE, MEDICAID ==
[2020-02-11 09:26] VITALS: BP 134/81
--- NOTE | 2020-02-11 10:30 | ER Document Report ---
ED Respiratory Problem - General Chief Complaint: Cough Stated Complaint: COUGH,CONGESTION,HEADACHE Time Seen by Provider: 02/11/20 10:04 Primary Care Provider: KIM LOPEZ DO [Primary Care Provider] - Follow up as needed Notes: CHIEF COMPLAINT: Cough and congestion HPI: 59-year-old male with cardiac history presenting for cough and congestion for 3 days. Both his roommates have tested positive in the last week for Covid. No shortness of breath no chest pain. Patient would like a Covid test ROS: See HPI - all other systems were reviewed and are otherwise negative Constitutional: no fever Eyes: no drainage, no blurred vision ENT: + runny nose, no sore throat Cardiovascular: no chest pain Resp: no SOB, + cough GI: no vomiting, no diarrhea, no abdominal pain : no dysuria Integumentary: no rash Allergy: no hives Musculoskeletal: no extremity pain or swelling Neurological: no numbness/tingling, no weakness MEDICATIONS: I agree with the patient medications as charted by the RN. ALLERGIES: I agree with the allergies as charted by the RN. PAST MEDICAL HISTORY/PAST SURGICAL HISTORY: Reviewed and agree as charted by RN. SOCIAL HISTORY: Reviewed and agree as charted by RN. FAMILY HISTORY: No significant familial comorbid conditions directly related to patient complaint EXAM: Reviewed vital signs as charted by RN. CONSTITUTIONAL: Alert and oriented and responds appropriately to questions. Well-appearing; well-nourished HEAD: Normocephalic; atraumatic EYES: PERRL; Conjunctivae clear, sclerae non-icteric ENT: normal nose; no rhinorrhea; moist mucous membranes; pharynx without lesions noted, no uvula edema or deviation, no tonsillar hypertrophy, phonation normal NECK: Supple without meningismus; non-tender; no cervical lymphadenopathy, no masses CARD: RRR; no murmurs, no clicks, no rubs, no gallops; symmetric distal pulses RESP: Normal chest excursion without splinting or tachypnea; breath sounds clear and equal bilaterally; no wheezes, no rhonchi, no rales, pulse oximetry 97% on room air not hypoxic ABD/GI: Normal bowel sounds; non-distended; soft, non-tender, no rebound, no guarding; no palpable organomegaly or masses. BACK: The back appears normal and is non-tender to palpation, there is no CVA tenderness EXT: Normal ROM in all joints; non-tender to palpation; no cyanosis, no effusions, no edema SKIN: Normal color for age and race; warm; dry; good turgor; no acute lesions noted NEURO: Moves all extremities equally; Motor and sensory function intact PSYCH: The patient's mood and manner are appropriate. Grooming and personal hygiene are appropriate. MDM: 59-year-old male with cardiac history presenting for cough with mild congestion over the last 3 days no definitive fever. No shortness of breath or chest pain. Given his medical history will obtain a chest x-ray for baseline to evaluate for infiltrate. Will obtain Covid test. If chest x-ray does not show acute findings will discharge home to self quarantine pending results The patient was evaluated during the global COVID-19 pandemic and that diagnosis was suspected/considered upon their initial presentation. Their evaluation, treatment and testing was consistent with current guidelines for patients who present with complaints or symptoms that may be related to COVID-19 TRAVEL OUTSIDE OF THE [place] IN LAST 30 DAYS: No - Related Data Allergies/Adverse Reactions: fentanyl Adverse Reaction (Verified 02/11/20 10:20) pregabalin [From Lyrica] Adverse Reaction (Verified 02/11/20 10:20) Home Medications: lisinopril, lantus, novolog, plavix, baby asa, prilosec, Imdur, metoprolol, atorvastatin, furosemide Past Medical History - Social History Smoking Status: Former Smoker Chew tobacco use (# tins/day): No Frequency of alcohol use: None Drug Abuse: None Family History: Reviewed & Not Pertinent Patient has homicidal ideation: No - Past Medical History Cardiac Medical History: Reports: Hx Congestive Heart Failure, Hx Heart Attack - x6, Hx Hypercholesterolemia, Hx Hypertension Endocrine Medical History: Reports: Hx Diabetes Mellitus Type 2 Renal/ Medical History: Denies: Hx Peritoneal Dialysis Past Surgical History: Reports: Hx Cardiac Catheterization - stints x 11 Physical Exam - Vital signs Vitals: Temp Pulse Resp BP Pulse Ox 97.7 F 75 20 134/81 H 99 02/11/20 09:22 02/11/20 09:22 02/11/20 09:22 02/11/20 09:22 02/11/20 09:22 Course - Vital Signs Vital signs: Temp Pulse Resp BP Pulse Ox 97.7 F 75 20 134/81 H 99 02/11/20 09:22 02/11/20 09:22 02/11/20 09:22 02/11/20 09:22 02/11/20 09:22 - Laboratory Results Critical Laboratory Results Reviewed: No Critical Results - Radiology Results Critical Radiology Results Reviewed: No Critical Results Discharge - Discharge Clinical Impression: Person under investigation for COVID-19, Cough Condition: Stable Disposition: HOME, SELF-CARE Additional Instructions: You are considered a person under investigation for COVID-19 at this time self quarantine at home pending your test results may take 2 to 5 days. You should receive notification from the hospital about your test results. Follow-up with your primary care provider or return to the emergency department for onset of shortness of breath, worsening cough, fever greater than 101 or worsening symptoms or concerns. Your chest x-ray today did not show evidence of an infiltrate or pneumonia Referrals: KIM LOPEZ, [Primary Care Provider] - Follow up as needed
--- NOTE | 2020-02-11 10:53 | RADIOLOGY REPORT (SQ) ---
EXAM DESCRIPTION: CHEST SINGLE VIEW IMAGES COMPLETED DATE/TIME: 02/11/2020 9:35 am REASON FOR STUDY: cough. COMPARISON: 08/10/2018 EXAM PARAMETERS: NUMBER OF VIEWS: One view. TECHNIQUE: Single frontal radiographic view of the chest acquired. RADIATION DOSE: NA LIMITATIONS: None. FINDINGS: LUNGS AND PLEURA: No opacities, masses or pneumothorax. No pleural effusion. MEDIASTINUM AND HILAR STRUCTURES: No masses. Contour normal. HEART AND VASCULAR STRUCTURES: Heart normal in size. Normal vasculature. BONES: No acute findings. HARDWARE: None in the chest. OTHER: No other significant finding. IMPRESSION: NO ACUTE RADIOGRAPHIC FINDING IN THE CHEST. TECHNICAL DOCUMENTATION: JOB ID: [id number] 2010 [employer]- All Rights Reserved Reading location - IP/workstation name: [email or web address]
== END 2020-02-11 11:25 | disposition home or self-care (01) ==
LOC: ER 09:17
DX: U07.1 COVID-19 (principal); R05 Cough; I11.0 Hypertensive heart disease with heart failure; I50.9 Heart failure, unspecified; I25.2 Old myocardial infarction; E11.9 Type 2 diabetes mellitus without complications; E78.00 Pure hypercholesterolemia, unspecified; Z79.899 Other long term (current) drug therapy; Z95.5 Presence of coronary angioplasty implant and graft; Z79.4 Long term (current) use of insulin; Z79.82 Long term (current) use of aspirin; Z79.02 Long term (current) use of antithrombotics/antiplatelets; Z87.891 Personal history of nicotine dependence
CPT/HCPCS: 99284; 71045; U0003; C9803; 87635